=== PATIENT | male | born 1965 | race Two or more races ===

== ENCOUNTER 2020-03-16 09:52 | Emergency (ER) | payer BC, OTHER, SELFPAY ==
[~2020-03-16] VITALS: Ht 170.2 cm; Wt 87.0 kg
--- NOTE | 2020-03-16 10:24 | NUR ---
54 Y/O MALE PRESENTS TO ED WITH C/O LUNGS HURTING AND ORTIZ. PER PT "THEY CALLED ME TODAY AND SAID I WAS POSITIVE FOR COVID. MY LUNGS HURT. I DON'T HAVE A HARD TIME BREATHING. I HAVE A LITTLE HEADACHE ALSO. MY BACK ALSO HURTS." NADN. VSS. NO C/O N/V/D, TRAUMA, SYNCOPE,CP. PT GIVEN URINAL AND EDUCATED REGARDING NEED OF URINE SAMPLE. PT PLACED ON CONT PULSE OX,NIBP
[2020-03-16 10:58] LABS: BASOPHILS % (AUTO) 0 % (0-1); EOSINOPHILS % (AUTO) 0 % (1-7); LYMPHOCYTES % (AUTO) 9 % (22-44); MD NO; MEAN CORPUSCULAR HEMOGLOBIN 27.8 pg (27.5-34.5); MEAN CORPUSCULAR HGB CONC 32.9 g/dL (33.2-36.2); MEAN CORPUSCULAR VOLUME 84.5 fL (81-97); MEAN PLATELET VOLUME 8.4 fL (7.4-10.4); MONOCYTES % (AUTO) 8 % (2-9); NEUTROPHILS # (AUTO) 7.73 x10^3/uL (1.8-6.8); NEUTROPHILS % (AUTO) 84 % (42-75); PLATELET COUNT 183 x10^3/uL (130-400); RED BLOOD COUNT 5.47 x10^6/uL (4.38-5.82); RED CELL DISTRIBUTION WIDTH 13.4 % (9.4-14.8)
--- NOTE | 2020-03-16 11:00 | NUR ---
UA COLLECTED SENT TO LAB. PT RESTING ON [facility]. NADN. RM.
[2020-03-16 11:09] LABS: ALBUMIN 3.6 g/dL (3.4-5.0); ANION GAP 4 mmol/L (5-15); CALCIUM 8.4 mg/dL (8.5-10.1); CHLORIDE 104 mmol/L (98-107); CREATININE 1.09 mg/dL (0.7-1.3)
[2020-03-16 11:19] LABS: MICROSCOPIC INDICATED
--- NOTE | 2020-03-16 12:43 | NUR ---
LATE ENTRY FOR 1200 PT RESTING ON [facility]. MONTY. AWAITING CT IMAGIN
--- NOTE | 2020-03-16 12:49 | NUR ---
SPOKE WITH CT REGARDING IMAGE ORDERED. PER CT THEY ARE DOING A BIOPSY AND ARE UNABLE TO TAKE THIS PT D/T POSITIVE COVID AT THIS TIME. THAT IT WILL SHUT DOWN THE ONLY OPEN CT. THEY HAVE TO WAIT UNTIL THE BIOPSY IS DONE BEFORE THEY CAN TAKE PT FOR IMAGE.
--- NOTE | 2020-03-16 12:52 | NUR ---
PT RESTING ON GURNEY. SITTING ON EDGE. MONTY. PT EDUCATED REGARDING THE WAIT FOR CT. PT VERBALIZED UNDERSTANDING. NO REQUESTS AT THIS TIME.
--- NOTE | 2020-03-16 13:05 | NUR ---
BEDSIDE REPORT TO SAPNA DAVILA.
--- NOTE | 2020-03-16 13:08 | NUR ---
RECEIVED REPORT FROM ANASTACIO.
[2020-03-16] MEDS ORDERED: AZITHROMYCIN 500 MG TABLET ONE (14:15)
[2020-03-16] MEDS ORDERED: CEFTRIAXONE 1,000 MG ONE (14:16)
[2020-03-16] MEDS ORDERED: LIDOCAINE-MPF 1%, 5ML ONE (14:16)
[2020-03-16 14:24] VITALS: BP 121/84
[2020-03-16] MEDS ORDERED: CEFTRIAXONE 1,000 MG IM ONE (14:30)
[2020-03-16] MEDS ORDERED: AZITHROMYCIN 500 MG TABLET PO ONE (14:30)
--- NOTE | 2020-03-16 14:44 | NUR ---
break RN note: rocephin admin per emar, tolerated well. pt is a&o, resps even and unlabored, able to speak in full sentences without difficulty. spo2 maintained >95% on room air. pt has no complaint at dc. pt given dc instructions and script, educated regarding dc rx for doxycycline. pt ambulatory to dc desk with steady gait.
== END 2020-03-16 14:45 | disposition home or self-care (01) ==
LOC: ED 11:52
DX: U07.1 COVID-19 (principal); J12.89 Other viral pneumonia; R31.9 Hematuria, unspecified
CPT/HCPCS: 36415; 71045; 74176; 80048; 81001; 82040; 85025; 96372; 99285; J0696